=== PATIENT | male | born 1970 | race Asian ===

== ENCOUNTER → 2021-12-25 | Outpatient (CLI) | payer OTHER ==
[~2021-12-25] MED LIST: ALPR.25 PO; CYAN1000 PO; GLIP5 PO; METF500 PO; Norco 5-325 Ta1 EACH PO; Pepcid20 MG PO; RANI150 PO; Zofran Odt4 MG SL
[2021-12-25 16:53] LABS: Bacteria Not Seen /hpf; Red Blood Cells, Urine Not Seen /hpf (0-2); Squamous Epithelial Cells Rare /hpf (Few); White Blood Cells, Urine Not Seen /hpf (0-5)
== END | disposition home or self-care (01) ==
LOC: LAB 16:38 → LAB SHORT 16:38
PROVIDERS: Physician Assistant
DX: R36.9 Urethral discharge, unspecified (principal)
CPT/HCPCS: 81015